=== PATIENT | male | born 1950 | race Caucasian/White ===

== ENCOUNTER 2023-05-13 20:38 | Inpatient (IN) ==
[2023-05-13] MEDS ORDERED: MoRPHine SULFATE 4 MG/ML 1 ML CARP\\VIAL IV STA (21:18)
--- NOTE | 2023-05-13 21:39 | Emergency Department Note ---
Impression & Plan Chest pain ED Provider Note HISTORY OF PRESENT ILLNESS: Patient is a 73-year-old male presenting with chest pain. Patient reports he developed substernal chest pain that radiated into his back starting at 18:30. He reports pain was sharp in nature. He took 1 nitro prior to EMS arrival. EMS gave the patient 324 mg of aspirin and 1 sublingual nitro spray. On arrival to the ER, the patient reports his chest pain is 6 out of 10. He reports a history of CAD with multiple stents in place. He is on Plavix. Denies any abdominal pain, nausea or vomiting. He denies any significant shortness of breath with the chest pain. He denies any DVT or PE history. ROS: as above PHYSICAL EXAM: Constitutional: Patient appears in no acute distress. HENT: Head: Normocephalic and atraumatic. Eyes: EOMI, PERRL Mouth/Throat: Mucous membranes moist. Neck: Trachea midline. Neck supple. Cardiovascular: RRR, No murmurs, rubs or gallops. Intact distal pulses. Pulmonary/Chest: No respiratory distress. Breath sounds clear and equal bilaterally. No wheezes or rales. Abdominal: BS +. Abdomen soft, no tenderness, rebound or guarding. Musculoskeletal: No edema, tenderness or deformity noted. Skin: Warm and dry. No rash, erythema, pallor or cyanosis Psychiatric: Appropriate mood and affect for situation. Neurological: Alert and keenly responsive. CN II-XII grossly intact, moving all extremities equally and fully. MDM: - Vitals signs stable. - History obtained via patient. Patient presents with chest pain. Patient reports sudden onset of substernal chest pain that radiated to his back starting at 1830. He took a sublingual nitro prior to EMS arrival. On arrival to the ER, the patient reports continued chest pain. He has a history of multiple cardiac stents. Denies any DVT or PE history. He is on Plavix - Chronic conditions affecting care: HTN; HLD; CAD (s/p PCI) - Differential diagnoses include, but are not limited to: Acute coronary syndrome; pulmonary embolism; dissection; tension pneumothorax; esophageal rupture; pneumonia - Order placed for continuous cardiac monitoring. At this time, monitor showed rate of 70 bpm with normal sinus rhythm, per my interpretation. - External medical records reviewed. EMS run sheet reviewed. Patient given 324 mg p.o. aspirin and 1 spray of nitro prior to arrival. - EKG reviewed by myself showed normal sinus rhythm. Rate 68 bpm. QTc 397. No acute ischemic changes. Patient does have some ST depressions in V5 and V6. - Laboratory workup interpreted by myself showed slight leukocytosis (WBC 14.5); stable electrolytes; CKD (Cr 1.53); normal troponin; normal lipase - CXR negative for pneumonia, per my interpretation. - Given patient's chest pain that radiates into back, CTA chest ordered. - Heart score 6 (History +2 highly suspicious; EKG +0; Age +2; Risk factors +2; Initial troponin +0), amounting to a moderate score. - Patient given 4 mg IV morphine in ER for further pain control. - Discussion was had with social science teacher about patient's case and need for admission - Hospitalist, Dr. Liz, consulted for admission - [facility] ASSESSMENT AND PLAN: Diagnosis: chest pain Plan: admit Past Med/Surg History Medical History (Updated 05/13/23 @ 23:32 by Krystin Carreon MD) CAD (coronary artery disease) Surgical History (Updated 02/15/21 @ 18:27 by Zack Taylor MD) H/O heart artery stent Social History Smoking Status: Never smoker Feels Safe at Home: Yes Allergies Allergies Allergy/AdvReac Type Severity Reaction Status Date / Time No Known Allergies Allergy Unverified 05/13/23 20:44 Home Meds Home Medications Medication Instructions Recorded Confirmed atorvastatin 40 mg tablet 40 mg PO DAILY 05/13/23 05/13/23 carvedilol 25 mg tablet 25 mg PO BID 05/13/23 05/13/23 clopidogrel 75 mg tablet 75 mg PO DAILY 05/13/23 05/13/23 cyanocobalamin (vitamin B-12) 1,000 mcg PO DAILY 05/13/23 05/13/23 1,000 mcg tablet (Vitamin B-12) docusate sodium 100 mg capsule 100 mg PO BID 05/13/23 05/13/23 finasteride 5 mg tablet 5 mg PO DAILY 05/13/23 05/13/23 hydrochlorothiazide 25 mg tablet 25 mg PO DAILY 05/13/23 05/13/23 lisinopril 10 mg tablet 10 mg PO DAILY 05/13/23 05/13/23 nitroglycerin 0.4 mg sublingual 0.4 mg sublingual DAILY PRN Chest 05/13/23 05/13/23 tablet Pain pantoprazole 40 mg tablet,delayed 40 mg PO DAILY 05/13/23 05/13/23 release spironolactone 25 mg tablet 25 mg PO DAILY 05/13/23 05/13/23 tamsulosin 0.4 mg capsule 0.4 mg PO HS 05/13/23 05/13/23 Results & Data (ED) Vital Signs Vital Signs - 24 hr 05/13/23 20:48 05/13/23 20:48 05/13/23 21:27 Temperature 36.7 C Temperature Source Oral Pulse Rate 69 69 Respiratory Rate 18 15 Respiratory Effort / Characteristics Short of Breath Blood Pressure 120/67 120/73 Blood Pressure Mean 84 88 Pulse Oximetry 96 94 Oxygen Delivery Method Room Air Room Air Sepsis Recent Fever Within 48 Hours No Sepsis New/Unexplained Change in Mental Status N/A Sepsis Action Taken by Nursing No Action Required 05/13/23 21:30 05/13/23 22:00 05/13/23 22:30 Temperature Temperature Source Pulse Rate 68 64 68 Respiratory Rate 20 20 18 Respiratory Effort / Characteristics Blood Pressure 120/68 134/74 139/88 Blood Pressure Mean 85 94 105 Pulse Oximetry 95 94 95 Oxygen Delivery Method Room Air Room Air Room Air Sepsis Recent Fever Within 48 Hours Sepsis New/Unexplained Change in Mental Status Sepsis Action Taken by Nursing 05/13/23 21:18 05/13/23 23:00 Temperature Temperature Source Pulse Rate 73 69 Respiratory Rate 21 Respiratory Effort / Characteristics Blood Pressure 122/78 Blood Pressure Mean 92 Pulse Oximetry 94 Oxygen Delivery Method Room Air Sepsis Recent Fever Within 48 Hours Sepsis New/Unexplained Change in Mental Status Sepsis Action Taken by Nursing Laboratory Data 05/13/23 20:53 05/13/23 20:53 Lab Results 05/13/23 05/13/23 05/13/23 Range/Units 20:53 20:53 21:34 WBC 14.50 H (4.8-10.8) K/ul RBC 4.71 (4.70-6.10) M/uL Hgb 13.6 L (14.0-18.0) g/dl Hct 40.8 L (42.0-52.0) % MCV 86.6 (80.0-100.0) fL MCH 28.9 (25.0-34.0) pg MCHC 33.3 (32.0-36.0) g/dL RDW Std Deviation 41.4 (36.4-46.3) fL RDW Coeff of [place] 13.2 (11.5-14.5) % Plt Count 276 (130-400) K/uL MPV 10.3 (9.4-12.4) fL Immature Gran % (Auto) 0.3 % Neut % (Auto) 80.9 % Lymph % (Auto) 11.2 % [place] % (Auto) 5.5 % Eos % (Auto) 1.9 % Baso % (Auto) 0.2 % Neut # (Auto) 11.73 H (1.40-6.50) K/uL Lymph # (Auto) 1.62 (1.2-3.4) K/uL [place] # (Auto) 0.80 H (0.11-0.59) K/uL Eos # (Auto) 0.28 (0-0.50) K/uL Baso # (Auto) 0.03 (0-0.2) K/uL Immature Gran # (Auto) 0.04 (0.01-0.20) K/uL Sodium 136 (136-145) mmol/L Potassium 3.9 (3.5-5.1) mmol/L Chloride 103 (98-107) mmol/L Carbon Dioxide 24 (21-32) mmol/L Anion Gap 9 (3-11) BUN 28 H (6-23) mg/dl Creatinine 1.53 H (0.6-1.4) mg/dl Est Cr Clr Drug Dosing 57.3 ml/min Est GFR ( Amer) 51.9 ml/min Est GFR (Non-Af Amer) 44.8 ml/min BUN/Creatinine Ratio 18.3 (10-20) Glucose 167 H (70-99(Fasting)) mg/dl Calcium 8.9 (8.6-10.3) mg/dl Total Bilirubin 0.5 (0.2-1.0) mg/dl AST 12 L (13-39) U/L ALT 10 (7-52) U/L Alkaline Phosphatase 63 (34-104) U/L Troponin I High Sens 5.7 (0-20) pg/ml Total Protein 6.8 (6.0-8.3) gm/dl Albumin 3.8 (3.4-5.0) gm/dl Globulin 3.0 (2.5-4.0) gm/dl Albumin/Globulin Ratio 1.3 (0.9-2) Lipase 58 (11-82) U/L SARS-CoV-2, RNA, NAAT NEGATIVE (NEGATIVE) Administered Medications Discontinued Medications Morphine Sulfate (Morphine Sulfate 4 Mg/Ml 1 Ml Carp\Vial) 4 mg IV NOW STA Stop: 05/13/23 21:19 Last Admin: 05/13/23 21:27 Dose: 4 mg Documented By: [facility] Discharge Plan Visit Data Chief Complaint: Chest Pain Stated Complaint: CHEST PAIN/TIGHTNESS ED Provider: Krystin Carreon Discharge Problem: Chest pain Forms Stand Alone Forms: My [facility] Prescriptions Prescriptions: No Action atorvastatin 40 mg Tablet 40 mg PO DAILY carvedilol 25 mg Tablet 25 mg PO BID Rx Instructions: must administer with a meal/food cyanocobalamin (vitamin B-12) [Vitamin B-12] 1,000 mcg Tablet 1,000 mcg PO DAILY clopidogrel 75 mg Tablet 75 mg PO DAILY spironolactone 25 mg Tablet 25 mg PO DAILY pantoprazole 40 mg Tablet,Delayed Release (Dr/Ec) 40 mg PO DAILY lisinopril 10 mg Tablet 10 mg PO DAILY nitroglycerin 0.4 mg Tablet, Sublingual 0.4 mg sublingual DAILY PRN (Reason: Chest Pain) hydrochlorothiazide 25 mg Tablet 25 mg PO DAILY tamsulosin 0.4 mg Capsule 0.4 mg PO HS docusate sodium 100 mg Capsule 100 mg PO BID finasteride 5 mg Tablet 5 mg PO DAILY Referrals Referrals: Cassandra GRECO [Primary Care Provider] -
[2023-05-13 21:58] LABS: Basophils # (auto) 0.03 K/uL (0-0.2); Basophils % (auto) 0.2 %; Eosinophils # (auto) 0.28 K/uL (0-0.50); Eosinophils % (auto) 1.9 %; Hematocrit (blood only) 40.8 % (42.0-52.0); Hemoglobin 13.6 g/dl (14.0-18.0); Immature Granulocytes # (auto) 0.04 K/uL (0.01-0.20); Immature Granulocytes % (auto) 0.3 %; Lymphocytes # (auto) 1.62 K/uL (1.2-3.4); Lymphocytes % (auto) 11.2 %; Mean Corpuscular Hemoglobin 28.9 pg (25.0-34.0); Mean Corpuscular Hgb Conc 33.3 g/dL (32.0-36.0); Mean Corpuscular Volume 86.6 fL (80.0-100.0); Mean Platelet Volume 10.3 fL (9.4-12.4); Monocytes % (auto) 5.5 %; Neutrophils # (auto) 11.73 K/uL (1.40-6.50); Neutrophils % (auto) 80.9 %; Platelet Count 276 K/uL (130-400); RDW Coefficient of Variation 13.2 % (11.5-14.5); RDW Standard Deviation 41.4 fL (36.4-46.3); Red Blood Count 4.71 M/uL (4.70-6.10)
[2023-05-13 22:04] LABS: Albumin Globulin Ratio 1.3 (0.9-2); Albumin Level 3.8 gm/dl (3.4-5.0); BUN Creatinine Ratio 18.3 (10-20); Bilirubin,Total 0.5 mg/dl (0.2-1.0); Calcium 8.9 mg/dl (8.6-10.3); Creatinine Clr Calc Pharmacy 57.3 ml/min; Est GFR (African American) 51.9 ml/min; Est GFR (Non-African American) 44.8 ml/min; Potassium 3.9 mmol/L (3.5-5.1); Total Protein 6.8 gm/dl (6.0-8.3)
[2023-05-13 22:09] LABS: Troponin I High Sensitivity 5.7 pg/ml (0-20)
[2023-05-14] MEDS ORDERED: OPTIRAY 320 125ml IV ONE (00:03)
--- NOTE | 2023-05-14 00:35 | CT Scan Report ---
Exam(s): CTA CHEST W/WO Contrast IV Amt: 118 ML OPTIRAY 320 EXAM: CT Angiography Chest With Intravenous Contrast CLINICAL HISTORY: Reason for exam: chest pain into back; r/o dissection. TECHNIQUE: Axial computed tomographic angiography images of the chest with intravenous contrast. CTDI is 80.67 mGy and DLP is 1880.56 mGy-cm. Automated exposure control was utilized for the study. A dose lowering technique was utilized adhering to the principles of ALARA. MIP reconstructed images were created and reviewed. CONTRAST: Patient received 118 ML OPTIRAY 320 of IV contrast COMPARISON: No relevant prior studies available. FINDINGS: Pulmonary arteries: Unremarkable. No acute pulmonary embolism. Aorta: No acute findings. No thoracic aortic aneurysm. Lungs: Unremarkable. No mass. No consolidation. Pleural space: Unremarkable. No focal consolidation, pleural effusion, or pneumothorax. Heart: Unremarkable. No significant pericardial effusion. No evidence of RV dysfunction. No cardiomegaly. Bones/joints: No acute fracture. No dislocation. Soft tissues: Unremarkable. Lymph nodes: Unremarkable. No enlarged lymph nodes. Liver: Hepatic steatosis. Spleen: Low-attenuation cystic lesion in the spleen measures 12 mm. IMPRESSION: 1. No acute pulmonary embolism. 2. No focal consolidation, pleural effusion, or pneumothorax. Electronically signed by: Prakash Bianchi MD 05/14/23 00:35 AM
--- NOTE | 2023-05-14 01:22 | History & Physical Report ---
Date of Service May 14, 2023 Assessment & Plan (1) Chest pain: Plan: 73-year-old male with past medical significant CAD s/p stents hypertension hyperlipidemia BPH presents with chest pain. Chest pain History of CAD s/p 4 stents as per patient last stent in 2018 EKG shows some T wave inversion lateral leads Currently symptoms resolved after aspirin and nitro. First troponin is 5.7 and repeat is 12.7. Will monitor in med telemetry We will follow serial cardiac enzymes and echocardiogram. We will keep him n.p.o. Consult cardiology in a.m. for further recommendations History of CAD s/p stents On Coreg, statin, Plavix. Hyperlipidemia on statin Hypertension On Coreg lisinopril and hydrochlorothiazide and spironolactone We will monitor blood pressure BPH On Flomax and finasteride GERD on Protonix DVT prophylaxis SCDs for now Disposition Observation with telemetry Expected discharge back to group home. (2) H/O heart artery stent: History of Present Illness Chief Complaint: Chest pain Primary Care Provider: ANGUS Trujillo 73-year-old male coming from group home with past medical history significant for CAD s/p multiple stents, hypertension, hyperlipidemia, BPH, GERD presents with chest pain. Patient states about a week ago he had a chest pain radiating to his back and at that time he took 2 nitros, thinks which made his blood pressure low and was feeling dizzy he was too brought in and he laid in the bed for 1 hour and his symptoms subsided. Patient states again today around 6:30 PM chest pain came back in the middle of the chest radiating to his back he took 1 nitro but it did not help. On the way he was given nitro spray and 3 dose of aspirin as per patient. When he came in in the ER he was still having some pain but now completely resolved. When he had a pain it was 8/10 in severity and was sweating. Denies any headache or dizziness. No nausea. Says he is always short of breath. Says minimal exertion makes him short of breath. Says he walks without support for short distance but for some moderate distance uses cane and for long distances on wheelchair because he easily gets short of breath. Says his last stent was in 2018. Vision is okay. No runny nose or sore throat or cough or earaches. Afebrile. No difficulty swallowing. No abdominal pain. Somewhat constipated and uses stool softener. Normal bladder movements. Currently resting comfortably and hemodynamically stable. Past medical history as mentioned above. Past surgical history cardiac cath and stent placement. Appendectomy. Knee surgeries. Family history significant for heart disease. Social history currently present. Denies smoking history. Says he drinks alcohol socially. Denies drug abuse. Allergies Allergy/AdvReac Type Severity Reaction Status Date / Time No Known Allergies Allergy Unverified 05/13/23 20:44 Home Medications Medication Instructions Recorded Confirmed Type atorvastatin 40 mg tablet 40 mg PO DAILY 05/13/23 05/13/23 History carvedilol 25 mg tablet 25 mg PO BID 05/13/23 05/13/23 History clopidogrel 75 mg tablet 75 mg PO DAILY 05/13/23 05/13/23 History cyanocobalamin (vitamin B-12) 1,000 mcg PO DAILY 05/13/23 05/13/23 History 1,000 mcg tablet (Vitamin B-12) docusate sodium 100 mg capsule 100 mg PO BID 05/13/23 05/13/23 History finasteride 5 mg tablet 5 mg PO DAILY 05/13/23 05/13/23 History hydrochlorothiazide 25 mg tablet 25 mg PO DAILY 05/13/23 05/13/23 History lisinopril 10 mg tablet 10 mg PO DAILY 05/13/23 05/13/23 History nitroglycerin 0.4 mg sublingual 0.4 mg sublingual DAILY PRN Chest 05/13/23 05/13/23 History tablet Pain pantoprazole 40 mg tablet,delayed 40 mg PO DAILY 05/13/23 05/13/23 History release spironolactone 25 mg tablet 25 mg PO DAILY 05/13/23 05/13/23 History tamsulosin 0.4 mg capsule 0.4 mg PO HS 05/13/23 05/13/23 History Past Med/Surg History Medical History (Updated 05/13/23 @ 23:32 by Krystin Carreon MD) CAD (coronary artery disease) Surgical History (Updated 02/15/21 @ 18:27 by Zack Taylor MD) H/O heart artery stent Social History Smoking Status: Never smoker Feels Safe at Home: Yes Review of Systems Review of Systems: All systems reviewed & are unremarkable except as noted in Subjective Physical Exam Physical Exam: NEEDS EDITING General- adult Head- atraumatic Eyes- PERRL ENT- oropharynx clear Neck- supple, no JVD, Lungs- clear to auscultation and percussion Heart- regular rhythm; no murmur, no gallop, no rub appreciated Abdomen- normal bowel sounds, soft, nontender, no masses or hepatosplenomegaly Extremities- no pretibial edema, no erythema Neuro- alert, oriented x 3; PERRL, EOMI; no facial palsy; no dysarthria; Skin- warm & dry Results & Data Results & Data Vital Signs (Past 12 Hours) Vital Signs Temp Pulse Pulse Resp BP BP Pulse Ox 05/14/23 01:04 71 18 137/91 96 05/13/23 23:38 67 18 134/98 95 05/13/23 23:00 69 21 122/78 94 05/13/23 21:18 73 05/13/23 22:30 68 18 139/88 95 05/13/23 22:00 64 20 134/74 94 05/13/23 21:30 68 20 120/68 95 05/13/23 21:27 69 15 120/73 94 05/13/23 20:48 36.7 C 69 18 120/67 96 O2 Del Method 05/14/23 01:04 Room Air 05/13/23 23:38 Room Air 05/13/23 23:00 Room Air 05/13/23 21:18 05/13/23 22:30 Room Air 05/13/23 22:00 Room Air 05/13/23 21:30 Room Air 05/13/23 21:27 Room Air 05/13/23 20:48 Room Air Diagnostic Findings Laboratory Results WBC 14.50 K/ul (4.8-10.8) H 05/13/23 20:53 RBC 4.71 M/uL (4.70-6.10) 05/13/23 20:53 Hgb 13.6 g/dl (14.0-18.0) L 05/13/23 20:53 Hct 40.8 % (42.0-52.0) L 05/13/23 20:53 MCV 86.6 fL (80.0-100.0) 05/13/23 20:53 MCH 28.9 pg (25.0-34.0) 05/13/23 20:53 MCHC 33.3 g/dL (32.0-36.0) 05/13/23 20:53 RDW Std Deviation 41.4 fL (36.4-46.3) 05/13/23 20:53 RDW Coeff of [place] 13.2 % (11.5-14.5) 05/13/23 20:53 Plt Count 276 K/uL (130-400) 05/13/23 20:53 MPV 10.3 fL (9.4-12.4) 05/13/23 20:53 Immature Gran % (Auto) 0.3 % 05/13/23 20:53 Neut % (Auto) 80.9 % 05/13/23 20:53 Lymph % (Auto) 11.2 % 05/13/23 20:53 [place] % (Auto) 5.5 % 05/13/23 20:53 Eos % (Auto) 1.9 % 05/13/23 20:53 Baso % (Auto) 0.2 % 05/13/23 20:53 Neut # (Auto) 11.73 K/uL (1.40-6.50) H 05/13/23 20:53 Lymph # (Auto) 1.62 K/uL (1.2-3.4) 05/13/23 20:53 [place] # (Auto) 0.80 K/uL (0.11-0.59) H 05/13/23 20:53 Eos # (Auto) 0.28 K/uL (0-0.50) 05/13/23 20:53 Baso # (Auto) 0.03 K/uL (0-0.2) 05/13/23 20:53 Immature Gran # (Auto) 0.04 K/uL (0.01-0.20) 05/13/23 20:53 Sodium 136 mmol/L (136-145) 05/13/23 20:53 Potassium 3.9 mmol/L (3.5-5.1) 05/13/23 20:53 Chloride 103 mmol/L (98-107) 05/13/23 20:53 Carbon Dioxide 24 mmol/L (21-32) 05/13/23 20:53 Anion Gap 9 (3-11) 05/13/23 20:53 BUN 28 mg/dl (6-23) H 05/13/23 20:53 Creatinine 1.53 mg/dl (0.6-1.4) H 05/13/23 20:53 Est Cr Clr Drug Dosing 57.3 ml/min 05/13/23 20:53 Est GFR ( Amer) 51.9 ml/min 05/13/23 20:53 Est GFR (Non-Af Amer) 44.8 ml/min 05/13/23 20:53 BUN/Creatinine Ratio 18.3 (10-20) 05/13/23 20:53 Glucose 167 mg/dl (70-99(Fasting)) H 05/13/23 20:53 Calcium 8.9 mg/dl (8.6-10.3) 05/13/23 20:53 Total Bilirubin 0.5 mg/dl (0.2-1.0) 05/13/23 20:53 AST 12 U/L (13-39) L 05/13/23 20:53 ALT 10 U/L (7-52) 05/13/23 20:53 Alkaline Phosphatase 63 U/L (34-104) 05/13/23 20:53 Troponin I High Sens 12.7 pg/ml (0-20) D 05/13/23 23:10 Total Protein 6.8 gm/dl (6.0-8.3) 05/13/23 20:53 Albumin 3.8 gm/dl (3.4-5.0) 05/13/23 20:53 Globulin 3.0 gm/dl (2.5-4.0) 05/13/23 20:53 Albumin/Globulin Ratio 1.3 (0.9-2) 05/13/23 20:53 Lipase 58 U/L (11-82) 05/13/23 20:53 SARS-CoV-2, RNA, NAAT NEGATIVE (NEGATIVE) 05/13/23 21:34 Impressions Chest CTA 05/13/23 23:13 Exam(s): CTA CHEST W/WO Contrast IV Amt: 118 ML OPTIRAY 320 EXAM: CT Angiography Chest With Intravenous Contrast CLINICAL HISTORY: Reason for exam: chest pain into back; r/o dissection. TECHNIQUE: Axial computed tomographic angiography images of the chest with intravenous contrast. CTDI is 80.67 mGy and DLP is 1880.56 mGy-cm. Automated exposure control was utilized for the study. A dose lowering technique was utilized adhering to the principles of ALARA. MIP reconstructed images were created and reviewed. CONTRAST: Patient received 118 ML OPTIRAY 320 of IV contrast COMPARISON: No relevant prior studies available. FINDINGS: Pulmonary arteries: Unremarkable. No acute pulmonary embolism. Aorta: No acute findings. No thoracic aortic aneurysm. Lungs: Unremarkable. No mass. No consolidation. Pleural space: Unremarkable. No focal consolidation, pleural effusion, or pneumothorax. Heart: Unremarkable. No significant pericardial effusion. No evidence of RV dysfunction. No cardiomegaly. Bones/joints: No acute fracture. No dislocation. Soft tissues: Unremarkable. Lymph nodes: Unremarkable. No enlarged lymph nodes. Liver: Hepatic steatosis. Spleen: Low-attenuation cystic lesion in the spleen measures 12 mm. IMPRESSION: 1. No acute pulmonary embolism. 2. No focal consolidation, pleural effusion, or pneumothorax. Electronically signed by: Prakash Bianchi MD 05/14/23 00:35 AM ECG Additional Comments: ECG normal sinus rhythm with a rate of 68. T wave inversions in lateral leads. Code Status & VTE Plan VTE Prophylaxis Plan VTE Prophylaxis will be ordered: Yes
[2023-05-14] MEDS ORDERED: ACETAMINOPHEN 325 MG TAB PO PRN (02:22)
[2023-05-14] MEDS ORDERED: POLYETHYLENE (MIRALAX) 17 GM PACK PO PRN (02:22)
[2023-05-14] MEDS ORDERED: NITROGLYCERIN SL 0.4 MG/TAB TAB SL PRN ×2 (02:22)
[2023-05-14] MEDS ORDERED: MoRPHine SULFATE 2 MG/ML CARP IV PRN (02:22)
[2023-05-14 02:56] LABS: Appearance Urine Cloudy (Clear); Bacteria Urine Automated 2+ (Negative); Bilirubin Urine Negative (Negative); Blood Urine Trace (Negative); Color Urine Yellow; Epithelial Cell Urine Auto >30 /lpf (0-5); Glucose Urine UA Negative (Negative); Ketones Urine Negative (Negative); Leukocyte Esterase Urine 1+ (Negative); Nitrite Urine Positive (Negative); Protein Urine Negative (Negative); RBC Urine Automated 0-4 /hpf (0-4); Specific Gravity Urine > 1.045 (1.000-1.030); Urobilinogen Urine Negative (Negative); pH Urine 5.5 (4.5-7.5)
[2023-05-14 06:56] LABS: Basophils # (auto) 0.03 K/uL (0-0.2); Basophils % (auto) 0.3 %; Eosinophils # (auto) 0.26 K/uL (0-0.50); Eosinophils % (auto) 2.5 %; Hematocrit (blood only) 38.8 % (42.0-52.0); Hemoglobin 12.8 g/dl (14.0-18.0); Immature Granulocytes # (auto) 0.03 K/uL (0.01-0.20); Immature Granulocytes % (auto) 0.3 %; Lymphocytes % (auto) 20.9 %; Mean Corpuscular Hemoglobin 29.4 pg (25.0-34.0); Mean Platelet Volume 9.8 fL (9.4-12.4); Monocytes # (auto) 0.85 K/uL (0.11-0.59); Monocytes % (auto) 8.1 %; Neutrophils # (auto) 7.18 K/uL (1.40-6.50); Neutrophils % (auto) 67.9 %; Platelet Count 239 K/uL (130-400); RDW Coefficient of Variation 13.3 % (11.5-14.5); RDW Standard Deviation 43.7 fL (36.4-46.3); Red Blood Count 4.36 M/uL (4.70-6.10); White Blood Count 10.55 K/ul (4.8-10.8)
--- NOTE | 2023-05-14 07:01 | XRay Report ---
SINGLE VIEW CHEST CLINICAL HISTORY: Atypical chest pain. FINDINGS: 2 AP, portable, upright chest radiographs are compared to study dated 02/15/2021. The examin ation is degraded by portable technique and apical lordotic positioning. The heart is enlarged. The p ulmonary vasculature is noncongested. There is bibasilar scarring/atelectasis. The lungs and pleural spaces are otherwise clear. No pneumothorax is seen. The skeletal structures are osteopenic. The bony thorax is grossly intact. IMPRESSION: No acute cardiopulmonary abnormality. ACT 112: Negative or not required by law. Electronically signed by: Thaddeus Caba M.D. 05/14/2023 7:00 AM
[2023-05-14 07:15] LABS: BUN Creatinine Ratio 19.4 (10-20); Calcium 8.5 mg/dl (8.6-10.3); Est GFR (African American) 58.3 ml/min; Est GFR (Non-African American) 50.3 ml/min; Magnesium 1.9 mg/dl (1.7-2.4)
[2023-05-14] MEDS ORDERED: Heparin IV Adult Wt-Based Low-Dose WITH Bolus Protocol IV STA (07:44)
[2023-05-14] MEDS ORDERED: ASPIRIN 325 MG ECTAB PO ONE (08:00)
[2023-05-14] MEDS ORDERED: HEPARIN SODIUM/DEXTROSE 25,000 UNITS/500 ML BAG IV SCH (08:15)
[2023-05-14] MEDS: CLOPIDOGREL BISULFATE 75 MG TAB PO SCH (08:17)
[2023-05-14] MEDS: carvediloL 25 MG TAB PO SCH ×2 (08:17→20:56)
[2023-05-14] MEDS: ATORVASTATIN 40 MG TAB PO SCH (08:17)
[2023-05-14] MEDS: DOCUSATE SODIUM 100 MG CAP PO SCH ×2 (08:18→20:56)
[2023-05-14] MEDS: PANTOprazole 40 MG TAB PO SCH (08:18)
[2023-05-14] MEDS: CYANOCOBALAMIN (B-12) 500 MCG TABLET PO SCH (08:18)
[2023-05-14] MEDS: hydroCHLOROthiazide 25 MG TAB PO SCH (08:19)
[2023-05-14] MEDS: SPIRONOLACTONE 25 MG TAB PO SCH (08:19)
[2023-05-14] MEDS: FINASTERIDE 5 MG TAB PO SCH (08:19)
[2023-05-14] MEDS: lisinopril 10 MG TAB PO SCH (08:19)
--- NOTE | 2023-05-14 08:37 | Hospitalist Progress Note ---
Date of Service May 14, 2023 Assessment & Plan (1) Chest pain: Plan: 73-year-old male with past medical significant CAD s/p stents hypertension hyperlipidemia BPH presents with chest pain. Chest pain History of CAD s/p 4 stents as per patient last stent in 2018 EKG shows some T wave inversion lateral leads Currently chest pain free Reported he got Aspirin loading prior to admission Troponin is 5.7->12.7->172 Trop is 172 this morning Start heparin drip Start ASA 81mg daily Continue home plavix Cardiology consulted. Awaiting eval Keep NPO for possible cath pending cards evaluation. Continue trop trending F/u TTE History of CAD s/p stents On Coreg, statin, Plavix. Hyperlipidemia on statin Hypertension On Coreg lisinopril and hydrochlorothiazide and spironolactone BPH On Flomax and finasteride GERD on Protonix DVT prophylaxis: start hep gtt as above I spent a total of 50 minutes coordinating, documenting and providing care for this patient excluding time spent in performance of separately billed services (2) H/O heart artery stent: Admission and Anticipated Discharge Date Admission Date: May 14, 2023 Subjective Patient seen and examined Reported he had chest pain about 2 weeks ago, central, sharp, radiating to back. Took 2 nitro then which caused low BP and he had to lay down and pain resolved. He had a repeat episode yesterday evening, same characteristics, associated with some dizziness/diaphoresis but did not resolve with nitro He got about 4 Aspirin tabs at the [facility] and was brought to the hospital Pain stopped about 11pm last night. No pain at this time Reports chronic SOB with minimal activity, chronic leg swelling Denied cough Denied fevers, chills, nausea, vomiting, abd pain, diarrhea, urinary problems Stated pain is similar to heart attacks in the past during which he got stents placed. Stated last stent was in 2018 Denied smoking, alcohol or illicit drug use Reports father had CAD and bypass Physical Exam Constitutional: + well hydrated and + obese; no acute distress Eyes: PERRL, conjunctivae normal, anicteric sclerae ENMT: external ear and nose normal, oropharynx normal Respiratory: normal respiratory effort, lungs clear to auscultation Cardiovascular: Rate/Rhythm: regular rate and regular rhythm S1 S2 Gastrointestinal (Abdomen): normal bowel sounds, soft, nontender, no hepatosplenomegaly Musculoskeletal: +pedal edema Neurologic: PERRL, EOMI, accommodation nl, no face palsy, no dysarthria Reduced power in RLE (4/5) compared to LLE (Reported this was due to stroke over 1 year ago) Psychiatric: A+Ox3, euthymic affect Results & Data Results & Data Vital Signs (Past 12 Hours) Vital Signs Temp Pulse Pulse Resp BP BP Pulse Ox 05/14/23 07:32 36.9 C 62 18 117/70 95 05/14/23 02:29 72 05/14/23 02:22 05/14/23 02:22 36.9 C 65 18 119/72 95 05/14/23 01:37 64 05/14/23 01:04 71 18 137/91 96 05/13/23 23:38 67 18 134/98 95 05/13/23 23:00 69 21 122/78 94 05/13/23 21:18 73 05/13/23 22:30 68 18 139/88 95 05/13/23 22:00 64 20 134/74 94 05/13/23 21:30 68 20 120/68 95 05/13/23 21:27 69 15 120/73 94 05/13/23 20:48 36.7 C 69 18 120/67 96 O2 Del Method 05/14/23 07:32 Room Air 05/14/23 02:29 05/14/23 02:22 Room Air 05/14/23 02:22 Room Air 05/14/23 01:37 05/14/23 01:04 Room Air 05/13/23 23:38 Room Air 05/13/23 23:00 Room Air 05/13/23 21:18 05/13/23 22:30 Room Air 05/13/23 22:00 Room Air 05/13/23 21:30 Room Air 05/13/23 21:27 Room Air 05/13/23 20:48 Room Air Laboratory Results Abnormal lab results 05/13/23 05/13/23 05/14/23 Range/Units 20:53 20:53 02:43 WBC 14.50 H (4.8-10.8) K/ul RBC (4.70-6.10) M/uL Hgb 13.6 L (14.0-18.0) g/dl Hct 40.8 L (42.0-52.0) % Neut # (Auto) 11.73 H (1.40-6.50) K/uL Day # (Auto) 0.80 H (0.11-0.59) K/uL BUN 28 H (6-23) mg/dl Creatinine 1.53 H (0.6-1.4) mg/dl Glucose 167 H (70-99(Fasting)) mg/dl Calcium (8.6-10.3) mg/dl AST 12 L (13-39) U/L Troponin I High Sens (0-20) pg/ml Urine Appearance Cloudy A (Clear) Ur Specific [place] > 1.045 H (1.000-1.030) Urine Blood Trace H (Negative) Urine Nitrite Positive A (Negative) Ur Leukocyte Esterase 1+ H (Negative) Urine WBC (Auto) 10-30 H (0-5) /hpf U Epithel Cells (Auto) >30 H (0-5) /lpf Urine Bacteria (Auto) 2+ H (Negative) 05/14/23 05/14/23 05/14/23 Range/Units 06:13 06:13 06:13 WBC (4.8-10.8) K/ul RBC 4.36 L (4.70-6.10) M/uL Hgb 12.8 L (14.0-18.0) g/dl Hct 38.8 L (42.0-52.0) % Neut # (Auto) 7.18 H (1.40-6.50) K/uL Day # (Auto) 0.85 H (0.11-0.59) K/uL BUN 27 H (6-23) mg/dl Creatinine (0.6-1.4) mg/dl Glucose 119 H (70-99(Fasting)) mg/dl Calcium 8.5 L (8.6-10.3) mg/dl AST (13-39) U/L Troponin I High Sens 172.1 H* D (0-20) pg/ml Urine Appearance (Clear) Ur Specific [place] (1.000-1.030) Urine Blood (Negative) Urine Nitrite (Negative) Ur Leukocyte Esterase (Negative) Urine WBC (Auto) (0-5) /hpf U Epithel Cells (Auto) (0-5) /lpf Urine Bacteria (Auto) (Negative)
[2023-05-14] MEDS ORDERED: ASPIRIN 81 MG ECTAB PO SCH (09:00)
--- NOTE | 2023-05-14 09:06 | Cardiology Consultation ---
Date of Consultation May 14, 2023 Assessment & Plan (1) Unstable angina: (2) NSTEMI (non-ST elevated myocardial infarction): (3) Elevated troponin: (4) Chest pain at rest: (5) ASCVD (arteriosclerotic cardiovascular disease): (6) Hypertension: (7) Dyslipidemia, goal LDL below 70: Plan 73-year-old male admitted with symptoms suggestive of unstable angina. Initial EKG with marked anterolateral ST segment depression. + Elevated high- sensitivity troponin I (initially negative at 5.7 pg/mL then 12.7 pg/mL and now 172.1 pg/mL). Resting echocardiography pending. Options of management discussed, including associated risks. Patient to remain NPO for cardiac catheterization. Continue beta-amena, aspirin, clopidogrel, statin, and MARY inhibition. Further recommendations pending evaluation by Dr. Aceves and patient's ongoing hospitalization. Supervising Physician Co-Signing Physician Notes 73-year-old patient admitted with chest pain and elevated troponin suggestive of NSTEMI. Chest pain-free since admission. Reports history of PCI x4 and in- stent restenosis status post PCI of the LAD in 2018. 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 Denies orthopnea, PND, or lower extremity edema. No palpitations, lightheadedness, or dizziness. Telemetry reveals sinus rhythm. PE: VSS. Gen: NAD, AAO x3. Heart: Regular rhythm, normal S1-S2, no murmur. Lung: Clear bilateral, no rales, rhonchi, wheeze. Extremities: No edema. Palpable radial and femoral pulses. A/P: Agree with above PA-C history, physical exam, assessment and plan. Risk, benefits, alternatives to cardiac catheterization discussed. Patient agreeable to proceed. IV heparin will be placed on hold at this time. Continue aspirin, plavix, atorvastatin, carvedilol, and lisinopril as ordered. History of Present Illness Reason for Consultation: Chest pain Requesting Physician: Agusto Attending Physician: Rolly History of Present Illness Mr. Jodee Blank is a 73-year-old male who is being seen at the request of Dr. Liz. Reason for consultation is chest pain. Patient describes playing cards at 6:30 yesterday evening, developing substernal chest discomfort radiating to the mid back between the shoulders typical of his prior again. Notes taking one sublingual nitroglycerin without relief, thereafter developing significant diaphoresis of the head, neck, and arms. Notes notifying the sergeant on the block and being wheeled down to the nurses station via wheelchair where an EKG was obtained and 3 aspirin were admini stered. DOC EKG revealed marked anterior lateral STT wave changes suggestive of ischemia. Thereafter patient transported to the [facility] ER. EKG on presentation to the ER revealed normal sinus rhythm at 68 bpm with lateral STT wave abnormality suggestive of ischemia that are improved compared to the EKG obtained at the present. Lateral STT wave abnormality also noted at the time of stress testing on May 09, 2021. High-sensitivity troponin I initially 7 then 12.7 and now 172.1 pg/mL. Resting echocardiography obtained prior to my evaluation, interpretation pending. Chest x-ray without acute cardiopulmonary abnormality. CTA of the chest without acute PE, focal consolidation, pleural effusion, or pneumothorax. The patient describes having an episode of angina approximately 1 week ago while playing cards in the hard yard. At that time he took sublingual nitroglycerin x2 with resultant significant dizziness and presumed hypotension. Notes lying in his cell resting for approximately 1 hour then eventually feeling OK. The patient describes having history of CVD dating back approximately 12 years ago. He describes undergoing PCI of what sounds like the ostial/proximal LAD in [place], [place]. 1.5 years later he had recurrent symptoms and underwent stress testing leading to catheterization and PCI distal to the prior stents. On 2 additional occasions he underwent PCI of what sounds like the LAD, last on December 12, 2017. He recalls being told of having 70% in-stent restenosis at that time. Past Medical and Surgical History: ASCVD status post PCI x4 Hypertension Dyslipidemia Hepatic steatosis CVA November 2020 GERD B12 deficiency Ventral hernia BPH with LUTS Chronic back pain Anal fissure History of colonic polyps Appendectomy Knee surgery Family History: Mother is alive at 94. Father at the age of 78 with an ID. 3 brothers and 1 sister. 1 brother from agent orange exposure. Youngest brother is a post office clerk in [place], [place]. Social History: Non-smoker. Alcohol: 2 beers per week prior to incarceration. No illegal drug use. . 2 children, 2 grandchildren. Complete Review of Systems: Constitutional: No change in weight. No fevers or chills. HEENT: + Glasses. No amaurosis fugax. + Hard of hearing. Pulmonary: No history of sleep apnea, pulmonary embolism, COPD or asthma. Cardiac: See above. GI/Abd: + Dysphagia. + GERD. No melana or hematochezia. Denies liver problems Denies kidney problems. Denies pancrease issues. Vascular: + Nonobstructive carotid artery disease. Denies claudication, activity limited by significant shortness of breath. Hematologic: No coagulation disorder or abnormal bleeding. Musculoskeletal: Back pain. Arthritis. Skin: No rash. Neurologic: + CVA in November 2020. Chronic numbness involving the fourth and fifth digits on the right hand Male : BPH with luts. Endocrine: Denies diabetes. Denies thyroid problems. Complete Review of Systems is as stated above, negative, or noncontributory. Allergies Allergy/AdvReac Type Severity Reaction Status Date / Time No Known Allergies Allergy Unverified 05/13/23 20:44 Home Medications Medication Instructions Recorded Confirmed Type atorvastatin 40 mg tablet 40 mg PO DAILY 05/13/23 05/13/23 History carvedilol 25 mg tablet 25 mg PO BID 05/13/23 05/13/23 History clopidogrel 75 mg tablet 75 mg PO DAILY 05/13/23 05/13/23 History cyanocobalamin (vitamin B-12) 1,000 mcg PO DAILY 05/13/23 05/13/23 History 1,000 mcg tablet (Vitamin B-12) docusate sodium 100 mg capsule 100 mg PO BID 05/13/23 05/13/23 History finasteride 5 mg tablet 5 mg PO DAILY 05/13/23 05/13/23 History hydrochlorothiazide 25 mg tablet 25 mg PO DAILY 05/13/23 05/13/23 History lisinopril 10 mg tablet 10 mg PO DAILY 05/13/23 05/13/23 History nitroglycerin 0.4 mg sublingual 0.4 mg sublingual DAILY PRN Chest 05/13/23 05/13/23 History tablet Pain pantoprazole 40 mg tablet,delayed 40 mg PO DAILY 05/13/23 05/13/23 History release spironolactone 25 mg tablet 25 mg PO DAILY 05/13/23 05/13/23 History tamsulosin 0.4 mg capsule 0.4 mg PO HS 05/13/23 05/13/23 History Patient History Medical History CAD (coronary artery disease) Surgical History H/O heart artery stent Social History Smoking Status: Never smoker Hx Alcohol Use: Yes Alcohol type: beer Hx Substance Use: No Preferred Language: Congolese Communication Ability: Effective Engineer Byproduct Required: No Beliefs That Will Affect Care: None Current Living Situation: Other Current Living Situation Comment: ANGUS dent Feels Safe at Home: Yes Assistive Devices: Walker and Wheelchair Review of Systems Review of Systems: See above Physical Exam Physical Exam: General: A&Ox3. NAD. Right arm and left leg shackled to the bed HENT: Normocephalic. Atraumatic. Eyes: PER. Conjunctiva pink, sclera clear. Neck: Thick. No carotid bruits. No JVD. Heart: RRR. No murmur. No rub. No gallop. PMI is nondisplaced. Lungs: Clear to auscultation. Abdomen: +BS. Soft. Nontender. No masses or organomegaly. Extremities: Mild pretibial edema. No clubbing. No cyanosis. Limited neurological examination is without focal deficits. Pulses: radial=2/4, posterior tibial=1/4. Results & Data Vital Signs (Past 12 Hours) Vital Signs Temp Pulse Pulse Resp BP BP Pulse Ox 05/14/23 07:32 36.9 C 62 18 117/70 95 05/14/23 02:29 72 05/14/23 02:22 05/14/23 02:22 36.9 C 65 18 119/72 95 05/14/23 01:37 64 05/14/23 01:04 71 18 137/91 96 05/13/23 23:38 67 18 134/98 95 05/13/23 23:00 69 21 122/78 94 05/13/23 21:18 73 05/13/23 22:30 68 18 139/88 95 05/13/23 22:00 64 20 134/74 94 05/13/23 21:30 68 20 120/68 95 05/13/23 21:27 69 15 120/73 94 O2 Del Method 05/14/23 07:32 Room Air 05/14/23 02:29 05/14/23 02:22 Room Air 05/14/23 02:22 Room Air 05/14/23 01:37 05/14/23 01:04 Room Air 05/13/23 23:38 Room Air 05/13/23 23:00 Room Air 05/13/23 21:18 05/13/23 22:30 Room Air 05/13/23 22:00 Room Air 05/13/23 21:30 Room Air 05/13/23 21:27 Room Air Laboratory Results Cardiac Enzymes 05/13/23 05/13/23 05/14/23 Range/Units 20:53 23:10 06:13 AST 12 L (13-39) U/L Troponin I High Sens 5.7 12.7 D 172.1 H* D (0-20) pg/ml Coagulation 05/14/23 Range/Units 08:30 PT 11.4 (9.0-12.0) Seconds APTT 26.1 (21.0-31.0) Seconds CBC 05/13/23 05/14/23 Range/Units 20:53 06:13 WBC 14.50 H 10.55 (4.8-10.8) K/ul RBC 4.71 4.36 L (4.70-6.10) M/uL Hgb 13.6 L 12.8 L (14.0-18.0) g/dl Hct 40.8 L 38.8 L (42.0-52.0) % Plt Count 276 239 (130-400) K/uL Neut # (Auto) 11.73 H 7.18 H (1.40-6.50) K/uL Lymph # (Auto) 1.62 2.20 (1.2-3.4) K/uL [place] # (Auto) 0.80 H 0.85 H (0.11-0.59) K/uL Eos # (Auto) 0.28 0.26 (0-0.50) K/uL Baso # (Auto) 0.03 0.03 (0-0.2) K/uL Comprehensive Metabolic Panel 05/13/23 05/14/23 Range/Units 20:53 06:13 Sodium 136 137 (136-145) mmol/L Potassium 3.9 4.0 (3.5-5.1) mmol/L Chloride 103 104 (98-107) mmol/L Carbon Dioxide 24 27 (21-32) mmol/L BUN 28 H 27 H (6-23) mg/dl Creatinine 1.53 H 1.39 (0.6-1.4) mg/dl Glucose 167 H 119 H (70-99(Fasting)) mg/dl Calcium 8.9 8.5 L (8.6-10.3) mg/dl AST 12 L (13-39) U/L ALT 10 (7-52) U/L Alkaline Phosphatase 63 (34-104) U/L Total Protein 6.8 (6.0-8.3) gm/dl Albumin 3.8 (3.4-5.0) gm/dl Intake and Output 05/13/23 05/14/23 05/14/23 22:59 06:59 14:59 Other: Other Intake Source NPO Weight 126 kg 125.7 kg Weight Measurement Method Built in [facility] Standing Scale Diagnostic Findings Continuous hall monitor reveals sinus/sinus bradycardia. Heart rates in the 50s and 60s. No significant bradycardia. No pauses. No atrial fibrillation, atrial flutter, or ventricular tachycardia
[2023-05-14 09:13] LABS: Partial Thromboplastin Ratio 0.9; Partial Thromboplastin Time 26.1 Seconds (21.0-31.0); Prothrombin Time 11.4 Seconds (9.0-12.0)
[2023-05-14] MEDS ORDERED: HEPARIN SOD (PORCINE) 1000 UNIT/ML IV ONE (09:15)
--- NOTE | 2023-05-14 12:57 | Pre Anesthesia Assessment ---
Date of Service May 14, 2023 Pre Sedation Assessment Vital Signs Temp Pulse Pulse Resp BP Pulse Ox O2 Del Method 05/15/23 11:50 36.8 C 73 18 127/75 97 Room Air 05/15/23 07:00 36.5 C 87 18 108/68 97 Room Air 05/15/23 08:53 85 05/15/23 03:00 36.5 C 64 18 110/71 94 Room Air 05/15/23 00:10 68 05/14/23 23:00 36.5 C 67 18 106/65 94 Room Air 05/14/23 19:40 Room Air 05/14/23 19:00 36.6 C 61 20 104/60 94 Room Air 05/14/23 18:30 66 18 118/74 94 Room Air 05/14/23 17:30 36.5 C 59 L 18 103/66 93 Room Air 05/14/23 17:00 36.5 C 61 18 110/71 95 Room Air 05/14/23 16:30 36.6 C 62 18 124/60 93 Room Air 05/14/23 16:26 61 05/14/23 16:15 36.5 C 61 18 106/68 94 Room Air 05/14/23 16:00 63 20 105/65 94 Room Air 05/14/23 15:45 36.5 C 67 18 124/70 96 Room Air 05/14/23 15:30 60 16 113/67 94 Room Air Cardiovascular + regular rate and + regular rhythm + S1 normal and + S2 normal; no murmur + femoral pulses present and + radial pulses present; no JVD and no carotid bruit no edema Respiratory + respiratory effort normal; no respiratory distress, no labored breathing and no retractions no crackles, no rales, no rhonchi and no wheezes Pre-Sedation Airway Assessment Smoking Status: Never smoker Mallampati Class: III ASA: ASA3 NPO Status Date of Last Intake of Fluids: 05/13/23 Date of Last Intake of Solid Food: 05/13/23 Procedure Planning Contraindications for Sedation: none Current Medications Reviewed: Yes Notes The planned sedation has been discussed with the patient. Informed Consent was obtained. I have identified the patient, determined the appropriateness of sedation and have assessed the patient immediately prior to the procedure. All medicine(s) and interventions are by my order.
[2023-05-14] MEDS ORDERED: fentaNYL citrate PF 100 MCG/2 ML VIAL ONE (13:31)
[2023-05-14] MEDS ORDERED: niCARdipine HCL INJ 2.5 MG/ML 10 ML AMP ONE (13:31)
[2023-05-14] MEDS ORDERED: HEPARIN (PORCINE) 1000 UNIT/ML 10 ML (CATH LAB USE ONLY) ONE (13:31)
[2023-05-14] MEDS ORDERED: MIDAZOLAM HCL 1 MG/ML 2ML VIAL ONE ×2 (13:32→14:13)
[2023-05-14] MEDS ORDERED: NITROGLYCERIN/D5W 100MCG/ML 20ML SYR ONE (13:32)
--- NOTE | 2023-05-14 14:18 | Post Anesthesia Assessment ---
Date of Service May 14, 2023 Post Sedation Assessment Vital Signs Temp Pulse Pulse Resp BP Pulse Ox O2 Del Method 05/15/23 11:50 36.8 C 73 18 127/75 97 Room Air 05/15/23 07:00 36.5 C 87 18 108/68 97 Room Air 05/15/23 08:53 85 05/15/23 03:00 36.5 C 64 18 110/71 94 Room Air 05/15/23 00:10 68 05/14/23 23:00 36.5 C 67 18 106/65 94 Room Air 05/14/23 19:40 Room Air 05/14/23 19:00 36.6 C 61 20 104/60 94 Room Air 05/14/23 18:30 66 18 118/74 94 Room Air 05/14/23 17:30 36.5 C 59 L 18 103/66 93 Room Air 05/14/23 17:00 36.5 C 61 18 110/71 95 Room Air 05/14/23 16:30 36.6 C 62 18 124/60 93 Room Air 05/14/23 16:26 61 05/14/23 16:15 36.5 C 61 18 106/68 94 Room Air 05/14/23 16:00 63 20 105/65 94 Room Air 05/14/23 15:45 36.5 C 67 18 124/70 96 Room Air 05/14/23 15:30 60 16 113/67 94 Room Air Recovery Score Activity: Moves 4 extremities Respiration: Deep Breath/Cough Circulation: +/-20% PreAnes Value Consciousness: Arouseable (by name) Oxygen Saturation: > 92% On Room Air Discharge Sedation Level of Care: Phase I Post Sedation Plan On clinical assessment, the patient appears to have tolerated the sedation without complications. Patient is recovering as anticipated. Patient will continue to be monitored by nursing and may be discharged when sedation discharge criteria are met per below protocol. Upon Completions of procedure up to 15 minutes continue every 5 minute vital signs and the P.A.R. score; then discharge to a Phase I or Fast Track to Phase II per the following guidelines: * Discharge Patient to appropriate Phase II area if PAR is 8 or greater or return to pre- procedure baseline. The post - procedure orders will be as directed. * If PAR score is less than 8 or not return to pre-procedure baseline then patient will follow Phase I monitoring till PAR is reached for Phase II. The Phase I may be done in procedure room or may call to secure a Phase I area. * If naloxone or flumazenil are used for reversal, hold in Phase I for continued monitoring from when last reversal dose was given for a minimum of 60 minutes or longer pending the nurse and/or physician discretion of patient condition before discharge to Phase II. Please call the Sedation Physician to re-evaluate and complete post-note for discharge to Phase II area. Do NOT discharge from procedure sedation or Phase 1 until post- sedation evaluation note is complete by procedure /sedation MD Sedation Discharge Instructions to be given to the patient at discharge to home.
--- NOTE | 2023-05-14 14:27 | Cardiac Catheterization ---
Cardiac Cath Procedure Full Procedure Date May 14, 2023 Pre-Procedure Diagnosis Pre-Procedure Diagnosis: Non STEMI and CAD (History of LAD stenting and LAD in- stent restenosis) AUC Score AUC Score: 8 Post-Procedure Diagnosis Post-Procedure Diagnosis: Severe CAD and Elevated Intracardiac Pressures Procedure(s) Performed Procedure(s) Performed: Coronary Angiography and Left Heart Cath Belt And Link Assembly Supervisor Adarsh Aceves DO Product Representative(s) Kevinr CRUSHER FEEDER Estimated Blood Loss Estimated Blood Loss: 5cc Medication(s) Medication(s): Fentanyl, Heparin, Lidocaine 1%, Nicardipine, Nitroglycerin and Versed Summary of Findings 99% mid LAD with associated thrombus. Patent proximal LAD stent with 50% in-stent restenosis. Patent mid LAD stent with 70% in-stent restenosis near the distal edge of the stent. Patent proximal RCA stent. 60-70% proximal RPDA stenosis Hemodynamics Rest Ao:: 82/49/61 Final Ao: 90/41/65 LV: 99/7/22 Recommendations Recommendations: PCI without planned CABG Radiation Exposure (mGy) 1216 Contrast (mls) 100 Fluids (cc crystalloids) Fluids (cc crystalloids): 250 Nss Drains Drains: N/A Anesthesia Moderate sedation. Start 1353. End 1414. Sedation monitor: Markos SILVA Procedural Complication(s) None I attest to the content of the Intraoperative Record and any orders documented therein. Any exceptions are noted below. ACC Data: Adjuster Arbitrator Cardiac Status Clinical evaluation leading to the procedure 73-year-old male presents with NSTEMI. History of LAD PCE and ISR. CAD Presenation: Non STEMI Heart Failure: No Cardiogenic Shock within 24 Hours: No Cardiac Arrest within 24 Hours: No Imaging Studies Past 6 Months: No Stress Studies Past 6 Months: No Standard Exercise Test: No Stress Echocardiogram: No Stress Testing w/SPECT MPI: No Cardiac CTA: No STEMI OR Non-STEMI Symptom Onset Date: 05/13/23 Symptom Onset Time: 12:00 Coronary Anatomy Dominant: Right Left Main (% Stenosis): Normal LAD (% Stenosis): Proximal (Patent stent with 50% in-stent restenosis.), Mid (99% stenosis distal to proximal stent with associated thrombus. Mid stent with 70% in-stent restenosis.) and Distal (30%) D1 (% Stenosis): Proximal (70% small vessel) D2 (% Stenosis): Ostial (30%) Circumflex (% Stenosis): Normal OM1 (% Stenosis): Normal OM2 (% Stenosis): Normal RCA (% Stenosis): Proximal (Patent proximal stent) R PDA (% Stenosis): Ostial (60-70%) R PL1 (% Stenosis): Normal R PL2 (% Stenosis): Normal Diagnostic Physicians Name: Adarsh Aceves DO Closure Device Percutaneous Entry Location: Radial Closure Device: Radial Band Recommendations: PCI without planned CABG Intraprocedure Events Significant Disection: No Perforation: No
[2023-05-14] MEDS ORDERED: CLOPIDOGREL BISULFATE 300 MG TAB ONE (14:50)
[2023-05-14] MEDS ORDERED: ASPIRIN 81 MG CHEW ONE (15:06)
--- NOTE | 2023-05-14 15:58 | Cardiac Catheterization ---
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 Chronic Total Occlusion: No Pre-Procedure CHRISTOPHER Flow: 2 Previously Treated Lesion: Yes Lesion Complexity: Non-High/Non-C Lesion Length (mm): Multiple 15 mm Thrombus Present: Yes Guidewire Across Lesion: Yes Cardiac Cath Procedure Full Procedure Date May 14, 2023 Pre-Procedure Diagnosis Pre-Procedure Diagnosis: Non STEMI and CAD (History of LAD stenting and LAD in- stent restenosis) AUC Score AUC Score: 7 Post-Procedure Diagnosis Post-Procedure Diagnosis: Severe CAD and Successful PCI Procedure(s) Performed Procedure(s) Performed: Drug Eluting Stent Shotblast Operator Saturnino Mahmood MD, PhD Mold Tooler(s) Adam TRUJILLO Estimated Blood Loss Estimated Blood Loss: 5cc Medication(s) Medication(s): Fentanyl, Heparin, Lidocaine 1%, Nicardipine, Nitroglycerin and Versed Summary of Findings Brief description: Patient was on the cardiac catheterization table already prepped and draped. He had undergone diagnostic coronary angiography performed by Dr. Aceves. There was a 6 Armenian radial artery sheath in place. I was asked to perform PCI of his LAD. Patient was provided additional sedation. ACT was checked and additional heparin was provided as needed to maintain therapeutic ACT. A 6 Armenian EBU 3.5 guide catheter was used to engage the left main coronary. Through this, a BMW universal guidewire was advanced and positioned distally in the LAD. A 2.5 x 12 mm trek balloon was then inflated multiple times throughout the diseased segments at 14 chantal proximally and 8 chantal distally. A 2.5 x 18 mm [place] drug- eluting stent was then advanced and positioned in an overlap fashion distally in the LAD with the proximal edge of that stent within the previously placed distal stent. This was then deployed at 15 chantal. The balloon was deflated and spanned the overlap segment where it was inflated to 18 chantal. The stent delivery system was then removed. A 3.0 x 15 mm [place] drug-eluting stent was then advanced and positioned in the unstented segment between the old proximal and distal stents (level of the first branching diagonal). This stent was then deployed at 15 chantal. The balloon was deflated and retracted to cover the proximal overlap segment where it was reinflated to 18 chantal. The stent delivery system was removed. Hoop Punch And Coiler Operator angiography was performed. The lesion in the early distal LAD appeared to require stenting. Therefore, a 2.5 x 8 mm [place] drug-eluting stent was advanced and positioned across this lesion with its proximal edge within the distal segment of the most distal stent. This was then deployed at 12 chantal. The balloon was pulled back and the overlapped segment was postdilated to 14 chantal. The stent balloon was then pulled back a bit further into the stented segment and this was postdilated to 15 chantal. Finally, the stent balloon was pulled back into the original mid segment stent where the overlapped portion was dilated to 18 chantal. The stent delivery system was then removed. Postdilatation of the proximal and mid stents was then performed. A 3.0 x 15 mm NC trek was used to post dilate the entire proximal and mid stent train beginning at 18 chantal distally and 22 chantal proximally. This balloon was removed. Finally, the proximal stented segment including the overlapped portion with the newly placed mid LAD stent was then postdilated using a 3.5 x 12 mm NC trek balloon at 12 chantal followed by 14 chantal at the most proximal edge of the stent. Hoop Punch And Coiler Operator angiography was performed and decision was made to post dilate the most proximal portion of the stent train up to 18 chantal with the same balloon. The balloon was then removed. Angiography was performed in orthogonal views. The guidewire was then removed. The guide catheter was then removed over the J-wire. Radial artery sheath was removed. Hemostasis was obtained using the TR band. Patient remained hemodynamically stable and asymptomatic. He was returned to the recovery area. This ended the case. PCI results: There is 0% residual stenosis throughout the stent train except for the most proximal portion where there is less than 10% residual in-stent restenosis. CHRISTOPHER-3 flow post PCI No evidence of dissection or perforation post PCI The stent train has been tapered from 3.62 mm diameter at the most proximal portion down to 2.5 mm at the most distal segment. Summary: 1. Successful PCI with implantation of 3 drug-eluting stents. The most proximal of these was placed in an overlap fashion bridging the segment between previously placed proximal LAD stent and a more distal stent. Additionally, the more distal stent train was extended by the addition of 2 overlapped drug- eluting stents. 2. Recommend dual antiplatelet therapy with aspirin 325 mg daily and Plavix 75 mg daily for the next 30 days. Then, can change the aspirin to 81 mg daily and continue Plavix 75 mg daily. Given the degree/amount of stent in the LAD it may be prudent for him to remain on dual antiplatelet therapy indefinitely. 3. Guideline directed medical therapy for secondary prevention of coronary disease per primary jewel waxer. Hemodynamics Rest Ao:: 105/51 mmHg Final Ao: 112/55 mmHg LV: Not performed Recommendations Recommendations: Medical Therapy and/or Counseling and PCI without planned CABG Radiation Exposure (mGy) 3556 mGy, fluoroscopy time 13.8 minutes Contrast (mls) 160 mL Fluids (cc crystalloids) Fluids (cc crystalloids): 250 Nss Drains Drains: N/A Anesthesia 4 mg IV Versed, 100 mcg IV fentanyl. Start time 1414, end time 1459 Procedural Complication(s) None Disposition Recovery Room\PACU I attest to the content of the Intraoperative Record and any orders documented therein. Any exceptions are noted below. [facility] Card Cath Procedure Codes Moderate Sedation Procedure 1: Sedation/Anesthesia: 01828 Mod Sedation by a different physician ;Init15 Min Child Age 5&Up (Initial 15 min, start time 1414) Procedure 2: Sedation/Anesthesia: 88822 Mod Sedation by a different physician;Ea Additional 15 Minutes (Additional 29-minute, end time 1459) Stenting Procedure 1: Cardiovascular Stent Procedures: 91690 Perc transluminal revascularization of acute sub/total occl, aMI (LAD) PG Care Time/CCT Total # of Minutes Spent Total Time Spent with Patient: Total time spent is greater than 50% in coordination of care (as documented) at patient's floor/unit and/or counseling patient:
--- NOTE | 2023-05-14 17:51 | Electrocardiogram Report ---
Test Reason : Blood Pressure : / mmHG Vent. Rate : 068 BPM Atrial Rate : 068 BPM P-R Int : 164 ms QRS Dur : 092 ms QT Int : 374 ms P-R-T Axes : 068 032 118 degrees QTc Int : 397 ms Normal sinus rhythm Abnormal ECG When compared with ECG of 15-FEB-2021 13:09, T wave inversion now evident in Anterolateral leads Confirmed by Barron Santillan ([id number]) on 05/14/2023 5:51:34 PM Referred By: REFERRED SELF Confirmed By:Isra Santillan
[2023-05-14 18:04] LABS: Partial Thromboplastin Ratio 2.5
[2023-05-14 18:19] LABS: Partial Thromboplastin Time 71.3 Seconds (21.0-31.0)
[2023-05-14] MEDS: TAMSULOSIN HCL 0.4 MG CAP PO SCH (20:56)
[2023-05-15 07:40] LABS: Hematocrit (blood only) 38.5 % (42.0-52.0); Mean Corpuscular Hemoglobin 29.1 pg (25.0-34.0); Mean Corpuscular Hgb Conc 33.8 g/dL (32.0-36.0); Mean Corpuscular Volume 86.3 fL (80.0-100.0); Mean Platelet Volume 10.2 fL (9.4-12.4); Platelet Count 231 K/uL (130-400); RDW Coefficient of Variation 13.4 % (11.5-14.5); RDW Standard Deviation 41.2 fL (36.4-46.3); Red Blood Count 4.46 M/uL (4.70-6.10); White Blood Count 10.56 K/ul (4.8-10.8)
[2023-05-15 07:57] LABS: Calcium 8.5 mg/dl (8.6-10.3); Creatinine Clr Calc Pharmacy 53.1 ml/min; Est GFR (African American) 47.4 ml/min; Est GFR (Non-African American) 40.9 ml/min; Magnesium 1.9 mg/dl (1.7-2.4); Phosphorus 3.7 mg/dl (2.5-4.9); Potassium 3.9 mmol/L (3.5-5.1)
[2023-05-15 08:02] LABS: Partial Thromboplastin Time 27.4 Seconds (21.0-31.0)
[2023-05-15] MEDS: hydroCHLOROthiazide 25 MG TAB PO SCH (08:03)
[2023-05-15] MEDS: lisinopril 10 MG TAB PO SCH (08:03)
[2023-05-15] MEDS: carvediloL 25 MG TAB PO SCH ×2 (08:03→21:02)
[2023-05-15] MEDS: ATORVASTATIN 40 MG TAB PO SCH (08:03)
[2023-05-15] MEDS: DOCUSATE SODIUM 100 MG CAP PO SCH ×2 (08:03→21:01)
[2023-05-15] MEDS: SPIRONOLACTONE 25 MG TAB PO SCH (08:04)
[2023-05-15] MEDS: PANTOprazole 40 MG TAB PO SCH (08:04)
[2023-05-15] MEDS: CLOPIDOGREL BISULFATE 75 MG TAB PO SCH (08:04)
[2023-05-15] MEDS: CYANOCOBALAMIN (B-12) 500 MCG TABLET PO SCH (08:04)
[2023-05-15] MEDS: FINASTERIDE 5 MG TAB PO SCH (08:04)
[2023-05-15] MEDS: ASPIRIN 325 MG ECTAB PO SCH (08:05)
[2023-05-15] MEDS ORDERED: ASPIRIN 81 MG ECTAB PO SCH (09:00)
--- NOTE | 2023-05-15 11:10 | Cardiology Progress Note ---
Date of Service May 15, 2023 Assessment & Plan (1) Unstable angina: (2) NSTEMI (non-ST elevated myocardial infarction): (3) Elevated troponin: (4) Chest pain at rest: (5) ASCVD (arteriosclerotic cardiovascular disease): (6) Hypertension: (7) Dyslipidemia, goal LDL below 70: Plan 73-year-old male admitted with unstable angina, NSTEMI. Patient status post PCI of the LAD with 3 drug-eluting stents, with reported significant overall improvement. Continue dual antiplatelet therapy as detailed below. Continue beta-amena, statin, and MARY inhibition as prescribed. Risk factor and lifestyle modification discussed. Please contact with any questions or concerns. Admission and Anticipated Discharge Date Admission Date: May 14, 2023 Supervising Physician Co-Signing Physician Notes 73-year-old patient admitted with NSTEMI status post PCI x3 to the left anterior descending artery. Chest pain free overnight. Serum creatinine trending upward today. No dysrhythmia on telemetry. Denies orthopnea, PND, or lower extremity edema. No palpitations, lightheadedness, or dizziness. Telemetry reveals sinus rhythm. PE: VSS. Gen: NAD, AAO x3. Heart: Regular rhythm, normal S1-S2, no murmur. Lung: Clear bilateral, no rales, rhonchi, wheeze. Extremities: No edema. Palpable radial and femoral pulses. No right wrist ecchymosis or hematoma. A/P: Agree with above PA-C history, physical exam, assessment and plan. Continue dual antiplatelet therapy for minimum of 1 year post percutaneous intervention, however, most likely long-term given patient's significant history. Other medications including beta-amena, statin, and MARY inhibitor as prescribed. Postcardiac catheterization activity restrictions listed below. No further inpatient cardiac testing or intervention recommended at this time. ACTIVITY RECOMMENDATIONS: It is common to feel weak and fatigue for a few days. * Do not drive or operate any motorized equipment for the next three days. * Limit stair usage (2 or 3 trips a day only) for the next three days. * Do not lift anything heavier than 10 pounds for the next three days. * Do not engage in vigorous exercise or any sports for the next five days. * You may shower the day after your procedure, but do not immerse the area for three days. Cleanse the site gently with soap and water. SPECIAL CARE INSTRUCTIONS: * You may replace the pressure dressing or band-aid the morning after the procedure. * After your procedure, it is normal to have a small bruise or small lump at the site. Examine your site daily for any change in the bruise or lump, redness, swelling, drainage or numbness. Notify your doctor if any change. BLEEDING: * If there is a small amount of bleeding at the site, lie down and apply firm pressure with a clean cloth for ten minutes. When the bleeding stops, lie quietly keeping the procedure limb straight for six hours. Notify your doctor as soon as possible. * If the bleeding does not stop after ten minutes or if there is a large amount of bleeding or spurting, call 911 immediately. Continue to lie down and hold firm pressure until help arrives. SKIN IRRITATION: * You may experience some redness and/or swelling in the area where radiation was administered. If any skin irritation occurs, please contact your family ph ysician. FOLLOW UP VISIT: Keep any scheduled doctor appointments. Subjective Patient seen and examined. Guards at bedside. Chart, medications, and telemetry reviewed. Status post May 14, 2023 PCI of the LAD with 3 drug-eluting stents. Interventional cardiology recommendations appreciated, recommending utilization of dual antiplatelet therapy with aspirin 325 mg/day and clopidogrel 75 mg/day for 30 days then reducing aspirin to 81 mg/day with patient to continue dual antiplatelet therapy indefinitely. Patient notes feeling significantly improved post intervention. He is anxious for discharge. No complaints other than needing to use the restroom. Continuous desk monitor reveals sinus, currently at 70 bpm. No significant arrhythmias observed. Review of Systems Review of Systems: Complete review of systems is otherwise as stated above, negative, noncontributory. Physical Exam Physical Exam: General: A&Ox3. NAD. HENT: Normocephalic. Atraumatic. Eyes: PER. Conjunctiva pink, sclera clear. Neck: Thick. No carotid bruits. No JVD. Heart: RRR. No murmur. No rub. No gallop. PMI is nondisplaced. Lungs: Clear to auscultation. Abdomen: +BS. Soft. Nontender. No masses or organomegaly. Extremities: Mild pretibial edema. No clubbing. No cyanosis. Limited neurological examination is without focal deficits. Pulses: radial=2/4, posterior tibial=1/4. Results & Data Vital Signs (Past 12 Hours) Vital Signs Temp Pulse Pulse Resp BP Pulse Ox O2 Del Method 05/15/23 07:00 36.5 C 87 18 108/68 97 Room Air 05/15/23 08:53 85 05/15/23 03:00 36.5 C 64 18 110/71 94 Room Air 05/15/23 00:10 68 Laboratory Results Cardiac Enzymes 05/14/23 05/14/23 Range/Units 11:16 16:48 Troponin I High Sens 338.1 H* D 355.8 H* (0-20) pg/ml Coagulation 05/14/23 05/15/23 Range/Units 16:48 06:34 APTT 71.3 H* 27.4 (21.0-31.0) Seconds CBC 05/15/23 Range/Units 06:34 WBC 10.56 (4.8-10.8) K/ul RBC 4.46 L (4.70-6.10) M/uL Hgb 13.0 L (14.0-18.0) g/dl Hct 38.5 L (42.0-52.0) % Plt Count 231 (130-400) K/uL Comprehensive Metabolic Panel 05/15/23 Range/Units 06:34 Sodium 137 (136-145) mmol/L Potassium 3.9 (3.5-5.1) mmol/L Chloride 104 (98-107) mmol/L Carbon Dioxide 27 (21-32) mmol/L BUN 28 H (6-23) mg/dl Creatinine 1.65 H (0.6-1.4) mg/dl Glucose 113 H (70-99(Fasting)) mg/dl Calcium 8.5 L (8.6-10.3) mg/dl Intake and Output 05/14/23 05/15/23 05/15/23 22:59 06:59 14:59 Intake Total 400 / 452 Balance 400 / 452 Intake: IV 0 / 52 Heparin Sodium/Dextrose 25,000 0 / 52 units In 500 ml @ 0 UNITS/HR IV .Q0M [facility] Rx#:[id number] Oral 400 / 400 Other: Weight 125.8 kg Diagnostic Findings May 14, 2023 TTE Interpretation Summary ([facility], Dr. Aceves): Technically adequate. No comparison study available. Ejection fraction 65 to 70%. Normal LV wall motion. Mild tricuspid regurgitation. Estimated systolic pulmonary pressure 37 mmHg. May 14, 2023 TTE interpretation summary ([facility], Dr. Aceves): Technically adequate. No comparison study available. Ejection fraction 65 to 70%. Normal LV wall motion. Mild tricuspid regurgitation. Estimated systolic pulmonary pressure 37 mmHg.
[2023-05-15] MEDS ORDERED: SODIUM CHLORIDE 0.9% 1000ML 1,000 ML IV SCH (13:15)
--- NOTE | 2023-05-15 14:18 | Electrocardiogram Report ---
Test Reason : Blood Pressure : / mmHG Vent. Rate : 066 BPM Atrial Rate : 066 BPM P-R Int : 158 ms QRS Dur : 102 ms QT Int : 424 ms P-R-T Axes : 033 003 145 degrees QTc Int : 444 ms Normal sinus rhythm Minimal voltage criteria for LVH, may be normal variant Abnormal ECG When compared with ECG of 13-MAY-2023 20:47, No significant change was found Confirmed by Barron Santillan ([id number]) on 05/15/2023 2:17:50 PM Referred By: REFERRED SELF Confirmed By:Isra Santillan
--- NOTE | 2023-05-15 17:37 | Hospitalist Progress Note ---
Date of Service May 15, 2023 Assessment & Plan (1) Chest pain: Plan: 73-year-old male with past medical significant CAD s/p stents hypertension hyperlipidemia BPH presents with chest pain. Chest pain History of CAD s/p 4 stents as per patient last stent in 2018 Admitting EKG shows some T wave inversion lateral leads. Echo reviewed. Status post PCI of the LAD with 3 drug-eluting stents. Currently chest pain-free, reports overall improvement. Cardiology evaluated, DAPT with aspirin 325 Mg daily and Plavix 75 Mg daily for 30 days then reduce aspirin to 81 Mg daily, continue Plavix. History of CAD s/p stents: On Coreg, statin, Plavix. Hyperlipidemia on statin Hypertension: On Coreg lisinopril and hydrochlorothiazide and spironolactone BPH: On Flomax and finasteride GERD on Protonix DVT prophylaxis: Heparin subcu (2) H/O heart artery stent: Admission and Anticipated Discharge Date Admission Date: May 14, 2023 Subjective Patient seen and examined at bedside as a follow-up of chest pain status post stents placement while in hospital. Patient was lying in bed, on room air, denies any chest pain to me, reports eating okay and moving bowels okay, patient's creatinine is slightly elevated today, lack of outpatient records, would like to monitor his creatinine tomorrow morning prior to discharge. Otherwise offers no other complaints. Physical Exam Physical Exam: GENERAL: Alert and oriented x3. NAD, on RA. Obese class III. HEENT: No pallor, no icterus. Pupils equal, round and reactive to light. Oral mucosa moist. NECK: No JVD, no neck masses. HEART: S1 and S2 heard. Regular rate and rhythm. No murmur, no gallop. RESPIRATORY SYSTEM: Normal AP diameter. No accessory muscle use. No wheezing, no crackles. ABDOMEN: Soft, bowel sounds present, nontender, no distention. CENTRAL NERVOUS SYSTEM: No facial droop. Speech is clear. Obeys simple commands. Moves extremities. EXTREMITIES: No edema, no erythema seen. Results & Data Results & Data Vital Signs (Past 12 Hours) Vital Signs Temp Pulse Pulse Resp BP Pulse Ox O2 Del Method 05/15/23 15:00 36.7 C 74 20 118/70 98 Room Air 05/15/23 15:27 70 05/15/23 11:50 36.8 C 73 18 127/75 97 Room Air 07/12/23 07:00 36.5 C 87 18 108/68 97 Room Air 05/15/23 08:53 85
[2023-05-15] MEDS: TAMSULOSIN HCL 0.4 MG CAP PO SCH (21:02)
[2023-05-15] MEDS: HEPARIN SOD 5,000 UNIT/0.5 ML VIAL SQ SCH (21:32)
[2023-05-16 08:16] LABS: Basophils # (auto) 0.03 K/uL (0-0.2); Basophils % (auto) 0.3 %; Eosinophils # (auto) 0.24 K/uL (0-0.50); Eosinophils % (auto) 2.5 %; Hematocrit (blood only) 40.2 % (42.0-52.0); Hemoglobin 13.6 g/dl (14.0-18.0); Immature Granulocytes # (auto) 0.03 K/uL (0.01-0.20); Immature Granulocytes % (auto) 0.3 %; Lymphocytes % (auto) 16.4 %; Mean Corpuscular Hemoglobin 29.2 pg (25.0-34.0); Mean Corpuscular Hgb Conc 33.8 g/dL (32.0-36.0); Mean Corpuscular Volume 86.3 fL (80.0-100.0); Mean Platelet Volume 10.1 fL (9.4-12.4); Monocytes # (auto) 0.73 K/uL (0.11-0.59); Monocytes % (auto) 7.5 %; Neutrophils # (auto) 7.12 K/uL (1.40-6.50); Platelet Count 255 K/uL (130-400); RDW Coefficient of Variation 13.3 % (11.5-14.5); RDW Standard Deviation 41.6 fL (36.4-46.3); Red Blood Count 4.66 M/uL (4.70-6.10); White Blood Count 9.75 K/ul (4.8-10.8)
[2023-05-16 08:35] LABS: BUN Creatinine Ratio 17.5 (10-20); Calcium 8.9 mg/dl (8.6-10.3); Creatinine Clr Calc Pharmacy 52.7 ml/min; Est GFR (Non-African American) 40.6 ml/min; Phosphorus 3.5 mg/dl (2.5-4.9); Potassium 3.9 mmol/L (3.5-5.1)
[2023-05-16] MEDS: ASPIRIN 325 MG ECTAB PO SCH (08:48)
[2023-05-16] MEDS: PANTOprazole 40 MG TAB PO SCH (08:48)
[2023-05-16] MEDS: carvediloL 25 MG TAB PO SCH (08:48)
[2023-05-16] MEDS: CLOPIDOGREL BISULFATE 75 MG TAB PO SCH (08:48)
[2023-05-16] MEDS: HEPARIN SOD 5,000 UNIT/0.5 ML VIAL SQ SCH (08:48)
[2023-05-16] MEDS: FINASTERIDE 5 MG TAB PO SCH (08:48)
[2023-05-16] MEDS: SPIRONOLACTONE 25 MG TAB PO SCH (08:48)
[2023-05-16] MEDS: DOCUSATE SODIUM 100 MG CAP PO SCH (08:49)
[2023-05-16] MEDS: lisinopril 10 MG TAB PO SCH (08:49)
[2023-05-16] MEDS: CYANOCOBALAMIN (B-12) 500 MCG TABLET PO SCH (08:49)
[2023-05-16] MEDS: ATORVASTATIN 40 MG TAB PO SCH (08:49)
[2023-05-16] MEDS: hydroCHLOROthiazide 25 MG TAB PO SCH (08:49)
[2023-05-16 08:54] LABS: Partial Thromboplastin Time 27.7 Seconds (21.0-31.0)
--- NOTE | 2023-05-16 13:06 | Discharge Summary ---
Date of Service May 16, 2023 Admission HPI Per Admitting Provider 73-year-old male coming from [facility] with past medical history significant for CAD s/p multiple stents, hypertension, hyperlipidemia, BPH, GERD presents with chest pain. Patient states about a week ago he had a chest pain radiating to his back and at that time he took 2 nitros, thinks which made his blood pressure low and was feeling dizzy he was too brought in and he laid in the bed for 1 hour and his symptoms subsided. Patient states again today around 6:30 PM chest pain came back in the middle of the chest radiating to his back he took 1 nitro but it did not help. On the way he was given nitro spray and 3 dose of aspirin as per patient. When he came in in the ER he was still having some pain but now completely resolved. When he had a pain it was 8/10 in severity and was sweating. Denies any headache or dizziness. No nausea. Says he is always short of breath. Says minimal exertion makes him short of breath. Says he walks without support for short distance but for some moderate distance uses ca ne and for long distances on wheelchair because he easily gets short of breath. Says his last stent was in 2018. Vision is okay. No runny nose or sore throat or cough or earaches. Afebrile. No difficulty swallowing. No abdominal pain. Somewhat constipated and uses stool softener. Normal bladder movements. Currently resting comfortably and hemodynamically stable. Past medical history as mentioned above. Past surgical history cardiac cath and stent placement. Appendectomy. Knee surgeries. Family history significant for heart disease. Social history currently present. Denies smoking history. Says he drinks alcohol socially. Denies drug abuse. Admission Exam Per Admitting Provider General- adult Head- atraumatic Eyes- PERRL ENT- oropharynx clear Neck- supple, no JVD, Lungs- clear to auscultation and percussion Heart- regular rhythm; no murmur, no gallop, no rub appreciated Abdomen- normal bowel sounds, soft, nontender, no masses or hepatosplenomegaly Extremities- no pretibial edema, no erythema Neuro- alert, oriented x 3; PERRL, EOMI; no facial palsy; no dysarthria; Skin- warm & dry Principal Diagnosis NSTEMI Concern for UTI Discharge Exam GENERAL: Alert and oriented x3. NAD, on RA. Obese class III. HEENT: No pallor, no icterus. Pupils equal, round and reactive to light. Oral mucosa moist. NECK: No JVD, no neck masses. HEART: S1 and S2 heard. Regular rate and rhythm. No murmur, no gallop. RESPIRATORY SYSTEM: Normal AP diameter. No accessory muscle use. No wheezing, no crackles. ABDOMEN: Soft, bowel sounds present, nontender, no distention. CENTRAL NERVOUS SYSTEM: No facial droop. Speech is clear. Obeys simple commands. Moves extremities. EXTREMITIES: No edema, no erythema seen. Discharge Data Allergies Allergy/AdvReac Type Severity Reaction Status Date / Time No Known Allergies Allergy Unverified 05/13/23 20:44 Consultations 05/13/23 23:22 ED Decision to Admit Stat 05/14/23 08:00 Consult Cardiology Routine Procedures Performed Operation Date: 05/14/23 12:30 Actual Procedures p Cath, Left with Cors and Vent - Adarsh Aceves DO s Drug Eluting Stent SGl Vessel - Saturnino Mahmood MD, PhD s Cineradiography w/Routine Exam - Adarsh Aceves DO Ordered Studies 05/13/23 23:13 CT angio chest dissec wo/w con Stat 05/14/23 10:41 CL Cath Imgs for PACS use only Stat Hospital Course (1) Chest pain: 73-year-old male with past medical significant CAD s/p stents hypertension hyper lipidemia BPH presents with chest pain. He was managed for the following: Chest pain/NSTEMI History of CAD s/p 4 stents as per patient last stent in 2018 Admitting EKG shows some T wave inversion lateral leads. Echo reviewed. Status post PCI of the LAD with 3 drug-eluting stents. Currently chest pain-free, reports overall improvement. Cardiology evaluated, DAPT with aspirin 325 Mg daily and Plavix 75 Mg daily for 30 days then reduce aspirin to 81 Mg daily, continue Plavix. Signed out to Dr. Gallego (@[facility]) on the pt's care; and regarding the DAPT regimen as well. History of CAD s/p stents: On Coreg, statin, Plavix. abnormal UA: UCx still pending, will use po atb for 5 days on dc. f/u with final results on the UCx, coordinate w/ PCP/Dr in 3-5 days. Hyperlipidemia on statin Hypertension: On Coreg lisinopril and hydrochlorothiazide and spironolactone BPH: On Flomax and finasteride GERD on Protonix DVT prophylaxis: Heparin subcu Patient being discharged to [facility] with following instruction at the point of discharge: Follow-up with your primary care physician within a week time and likely you will need labs CBC/CMP/magnesium/phosphorus. For concerns of UTI during your urine analysis while in hospital, you are being discharged on antibiotic, please complete the course as prescribed. For your chest pain [NSTEMI], you underwent stent placement. You are to use aspirin 325 mg daily for 1 month starting 05/15/2023 and then use baby aspirin daily going forward. Continue to use Plavix 75 mg daily. Follow-up with your heart doctor regularly. Take your medications as prescribed. Home Health Attestation I certify that this patient is under my care and that I, or a physicians assistant director of security working with me, had a face to-face encounter that meets the home health [facility] encounter requirements with this patient. The encounter with the patient was in whole, or in part, for the following medical condition, which is the primary reason for home health care (list medical condition): I certify that, based on my findings, the following services are medically necessary home health services: My clinical findings support the need for the above services because: Further, I certify that my clinical findings support that this patient is homebound (i.e. absences from home require considerable and taxing effort and are for medical reasons or yazdanism services or infrequently or of short duration when for other reasons) because: Certification for Home Health Services: Based on the above findings, I certify that this patient is confined to the home and needs intermittent group home care, physical therapy and/or speech therapy or continues to need occupational therapy. The patient is under my care, and I have initiated the establishment of the plan of care. This patient will be followed by a physician who will periodically review the plan of care. Total Time Total Time Spent Total Time Spent (In Minutes): 55 Discharge Plan Discharge Items [facility] Disposition: [facility] Reason For Visit: CHEST PAIN Discharge Diagnosis: NSTEMI Concern for UTI Activity: As commented below Non-emergency contact: Primary Care Provider Call non-emergency contact if: you have any medication questions Follow-up/Referrals: Cassandra GRECO [Primary Care Provider] - Diet: Heart Healthy Add Attending Provider Instructions: Follow-up with your primary care physician within a week time and likely you will need labs CBC/CMP/magnesium/phosphorus. For concerns of UTI during your urine analysis while in hospital, you are being discharged on antibiotic, please complete the course as prescribed. For your chest pain [NSTEMI], you underwent stent placement. You are to use aspirin 325 mg daily for 1 month starting 05/15/2023 and then use baby aspirin daily going forward. Continue to use Plavix 75 mg daily. Follow-up with your heart doctor regularly. Take your medications as prescribed. Addtl Charge Nurse Provider Instructions: ACTIVITY RECOMMENDATIONS: It is common to feel weak and fatigue for a few days. * Do not drive or operate any motorized equipment for the next three days. * Limit stair usage (2 or 3 trips a day only) for the next three days. * Do not lift anything heavier than 10 pounds for the next three days. * Do not engage in vigorous exercise or any sports for the next five days. * You may shower the day after your procedure, butdo not immerse the area for three days. Cleanse the site gently with soap and water. SPECIAL CARE INSTRUCTIONS: * You may replace the pressure dressing or band-aid the morning after the procedure. * After your procedure, it is normal to have a small bruise or small lump at the site.Examine your site dailyfor any change in the bruise or lump, redness, swelling, drainage or numbness. Notify your doctor if any change. BLEEDING: * If there is a small amount of bleeding at the site, lie down and apply firm pressure with a clean cloth for ten minutes. When the bleeding stops, lie quietly keeping the procedure limb straight for six hours. Notify your doctor as soon as possible. *If the bleeding does not stop after ten minutes or if there is a large amount of bleeding or spurting, call 911 immediately.Continue to lie down and hold firm pressure until help arrives. SKIN IRRITATION: * You may experience some redness and/or swelling in the area where radiation was administered. If any skin irritation occurs, please contact your family physician. FOLLOW UP VISIT: Keep any scheduled doctor appointments. Pending Studies at Discharge: Yes (Urine culture final results.) Stand-Alone Forms: My [facility] Skilled Items Patient informed of condition?: Yes Discharge Level of Care: Other Communicable Disease: No Discharge Prognosis: Stable Lines: None Urinary Catheter: No Medications and DC Order Prescriptions: New cephalexin 250 mg Capsule 750 mg PO TID 5 Days Qty: 45 0RF aspirin [Ecotrin] 325 mg Tablet,Delayed Release (Dr/Ec) 325 mg PO QAM 28 Days Qty: 28 0RF aspirin 81 mg tablet,delayed release (DR/EC) 81 mg PO DAILY Qty: 30 0RF Rx Instructions: Start date: 06/14/2023 Continued atorvastatin 40 mg Tablet 40 mg PO DAILY carvedilol 25 mg Tablet 25 mg PO BID Rx Instructions: must administer with a meal/food cyanocobalamin (vitamin B-12) [Vitamin B-12] 1,000 mcg Tablet 1,000 mcg PO DAILY clopidogrel 75 mg Tablet 75 mg PO DAILY spironolactone 25 mg Tablet 25 mg PO DAILY pantoprazole 40 mg Tablet,Delayed Release (Dr/Ec) 40 mg PO DAILY lisinopril 10 mg Tablet 10 mg PO DAILY nitroglycerin 0.4 mg Tablet, Sublingual 0.4 mg sublingual DAILY PRN (Reason: Chest Pain) hydrochlorothiazide 25 mg Tablet 25 mg PO DAILY tamsulosin 0.4 mg Capsule 0.4 mg PO HS docusate sodium 100 mg Capsule 100 mg PO BID finasteride 5 mg Tablet 5 mg PO DAILY Discharge Orders: Discharge Order (Routine); Ordered 05/16/23 Ordered By: Melissa Barraza Admission Data Admit Date/Time: 05/14/23 11:13 Attending Provider: Melissa Barraza Admit Provider: Venancio Liz Primary Care Provider: Cassandra GRECO Other Providers: Venancio Liz ; Adarsh Aceves
[2023-05-16] MEDS ORDERED: cephALEXin 250 MG CAP PO SCH (14:00)
--- NOTE | 2023-05-17 17:54 | Electrocardiogram Report ---
Test Reason : Blood Pressure : / mmHG Vent. Rate : 066 BPM Atrial Rate : 066 BPM P-R Int : 168 ms QRS Dur : 100 ms QT Int : 408 ms P-R-T Axes : 039 -01 147 degrees QTc Int : 427 ms Normal sinus rhythm Abnormal ECG When compared with ECG of 15-MAY-2023 05:45, No significant change was found Confirmed by Barron Santillan ([id number]) on 05/17/2023 5:53:50 PM Referred By: REFERRED SELF Confirmed By:Isra Santillan
== END 2023-05-16 14:02 | DRG 247 ==
LOC: 2W 20:38 → ED 20:38 → 2W 05-14 02:11 → SUATTDRO 05-14 11:13 → 2S 05-14 15:51